=== PATIENT | female | born 1995 | race American Indian/Alaskan Native ===

== ENCOUNTER 2018-11-12 19:47 | Emergency (ER) | payer SELFPAY ==
[2018-11-12 20:37] VITALS: BP 103/62
[2018-11-12 21:09] LABS: Bilirubin,Urine NEG (Negative); Blood,Urine SM (Negative); Color,Urine Yellow (Yellow); Mucus,Urine FEW /HPF; Protein,Urine <15 mg/dL mg/dL (Negative); Urobilinogen,Urine < 2.0 mg/dL (<2.0)
== END 2018-11-12 23:00 | disposition left against medical advice (07) ==
LOC: ED 19:47
DX: O46.92 Antepartum hemorrhage, unspecified, second trimester (principal); Z3A.15 15 weeks gestation of pregnancy; Z53.21 Procedure and treatment not carried out due to patient leaving prior to being seen by health care provider
CPT/HCPCS: 81001

== ENCOUNTER 2019-04-23 10:22 | Outpatient (CLI) | payer MEDICAID ==
[2019-04-23 10:50] VITALS: BP 99/72
[2019-04-23] MEDS ORDERED: LACTATED RINGERS 1,000 ML IV ONE (11:04)
--- NOTE | 2019-04-23 11:43 | Event Note ---
Date: 04/23/19 (pt seen in Triage) pt confesses to taking castor oil X 2 doses "It's safe after 37 weeks." Explained to pt that causing ctx with dosing with castor oil can cause uterine rupture ( prev c/s) and that baby can have meconium stained amniotic fluid because it crosses the placenta. Pt declined her IVF and chose to increase PO fluids. She was informed by the RN that her preop was today @ 0945 and instructed to come straight over to the office. Pt d/c in no distress.
== END 2019-04-23 11:15 | disposition home or self-care (01) ==
LOC: TRG 10:22
PROVIDERS: ATTEND Obstetrics & Gynecology
DX: O47.1 False labor at or after 37 completed weeks of gestation (principal); Z3A.38 38 weeks gestation of pregnancy
CPT/HCPCS: 59025

== ENCOUNTER 2019-05-01 05:40 | Inpatient (IN) | payer MEDICAID ==
[2019-05-01] MEDS ORDERED: PEPCID IV ONE (06:11)
[2019-05-01] MEDS ORDERED: BICITRA PO ONE (06:11)
[2019-05-01] MEDS ORDERED: REGLAN IV ONE (06:11)
[2019-05-01 06:48] LABS: Basophils # (Auto) 0.1 K/mm3 (0.0-0.1); Basophils % (Auto) 0.9 % (0.0-1.8); Eosinophils # (Auto) 0.1 K/mm3 (0.0-0.4); Eosinophils % (Auto) 1.1 % (0.0-4.3); Hemoglobin 9.3 gm/dl (10.1-14.3); Lymphocytes # (Auto) 1.7 K/mm3 (1.2-5.4); Lymphocytes % (Auto) 26.6 % (13.4-35.0); Mean Corpuscular HGB Conc 33 % (30-34); Mean Corpuscular Volume 81 fl (79-97); Monocytes # (Auto) 0.4 K/mm3 (0.0-0.8); Monocytes % (Auto) 7.1 % (0.0-7.3); Platelet Count 179 K/mm3 (140-440); Red Blood Count 3.46 M/mm3 (3.65-5.03); Red Cell Distribution Width 14.3 % (13.2-15.2)
[2019-05-01] MEDS ORDERED: LACTATED RINGERS 1,000 ML IV SCH (07:00)
[2019-05-01] MEDS ORDERED: PITOCin/NS 20 UNIT/1000ML DRIP 20 UNITS/1,000 ML BAG IV SCH ×2 (07:00→12:00)
[2019-05-01] MEDS ORDERED: ANCEF/STERILE WATER 2 GM/20 ML 2 GM/20 ML SYRINGE IV NR (07:00)
--- NOTE | 2019-05-01 07:14 | History and Physical Report ---
History of Present Illness Date of examination: 04/29/19 Date of admission: 05/01/19 05:40 Chief complaint: Patient presents for repeat c/s. History of present illness: EDC Confirmation: 05/03/2019 Gestational Age: 28 4/7 weeks Past History : 3 Term Births: 2 Premature Births: 0 Living Children: 2 Para: 2 Mult. Births: 0 Prev : 2 Aborta: 0 Elect. Ab: 0 Spont. Ab: 0 Ectopics: 0 # 1 Delivery date: 2015 Weeks Gestation: 38 labor: no Delivery type: Sex: Female Comments: primary c/s for epilepsy # 2 Delivery date: 2017 Weeks Gestation: 38 labor: no Delivery type: Delivery location: [place] Infant Sex: Male Comments: scheduled repeat c/s Past Medical History: Epilepsy depression/anxiety bipolar Past Surgical History: 2015 and 2017 Past Medical History Surgery (Non-lapel stitcher): 2015 and 2017 Abnormal PAP: negative Family Hx: mother - aditiction no known family hx of cancer Social Hx: single relocated from [place] to help FOC's mother denies drugs/smoking/ETOH Infection History Hx of STD: GC/CT HIV Risk Eval: low risk Hepatitis B Risk Eval: low risk Personal hx. of genital herpes: no Partner hx. of genital herpes: no Rash, Viral, or Febrile illness since last LMP? no Varicella/Chicken Pox Status: Immunized Genetic History Congenital Heart Defect: Mom: no Dad: no Jesus Disease: Mom: no Dad: no Thalassemia Mom: no Dad: no Neural Tube Defect Mom: no Dad: no Down's Syndrome Mom: no Dad: no Taz-Sachs Mom: no Dad: no Sickle Cell Disease/Trait Mom: no Dad: no Hemophilia Mom: no Dad: no Muscular Dystrophy Mom: no Dad: no Cystic Fibrosis Mom: no Dad: no Kannan Chorea Mom: no Dad: no Mental Retardation Mom: no Dad: no Fragile X Mom: no Dad: no Other Genetic/Chromosomal Disorder Mom: no Dad: no Child w/other defect Mom: no Dad: no Enviromental Exposures Xray Exposure: no Medication, drug, or alcohol use since LMP: no Chemical/Other Exposure: no Exposure to Cat Liter: no Hx of Parvovirus (Fifth Disease): no Occupational Exposure to Children: none Current Allergies: No known allergies Past History - Obstetrical History : 3 Medications and Allergies Allergies Allergy/AdvReac Type Severity Reaction Status Date / Time No Known Allergies Allergy Verified 04/23/19 10:25 Home Medications Medication Instructions Recorded Confirmed Last Taken Type Vit-Fe Fumar-FA [ 1 tab PO QDAY 04/23/19 05/01/19 04/22/19 21:00 History Vitamin] 1 Active Meds: Active Medications Cefazolin Sodium (Ancef/Sterile Water 2 Gm/20 Ml) 2 gm in 20 mls @ 80 mls/hr IV PREOP NR; Protocol Stop: 05/01/19 07:14 Last Admin: 05/01/19 06:54 Dose: 80 mls/hr Documented by: Oxytocin/Sodium Chloride (Pitocin/Ns 20 Unit/1000ml Drip) 20 units in 1,000 mls @ 0 mls/hr IV TITR MARA Lactated Ringer's (Lactated Ringers) 1,000 mls @ 2,250 mls/hr IV PREOP MARA Stop: 05/02/19 07:27 Last Admin: 05/01/19 06:55 Dose: 2,250 mls/hr Documented by: - Vital Signs Vital signs: Vital Signs Pulse BP 76 112/65 05/01/19 06:51 05/01/19 06:51 Temp Pulse Resp BP Pulse Ox 76 112/65 05/01/19 06:51 05/01/19 06:51 - Physical Exam Breasts: Positive: deferred Cardiovascular: Regular rate Lungs: Positive: Clear to auscultation, Normal air movement Abdomen: Positive: soft Uterus: Positive: enlarged. Negative: tender - Obstetrical FHR: category 1 Results Result Diagrams: 05/01/19 06:25 Abnormal lab results 05/01/19 Range/Units 06:25 RBC 3.46 L (3.65-5.03) M/mm3 Hgb 9.3 L (10.1-14.3) gm/dl Hct 28.0 L (30.3-42.9) % MCH 27 L (28-32) pg All other labs normal. Assessment and Plan - Patient Problems (1) 39 weeks gestation of Current Visit: Yes Status: Acute (2) Maternal care due to low transverse uterine scar from previous deli very Current Visit: Yes Status: Acute Plan to address problem: Options reviewed, questions enocuaregad and answered. She was informed of the increased risks for complications involving bowel. bladder, ureters and vascular that could be fatal. She declines sterilization and desires to proceed with C/S.
--- NOTE | 2019-05-01 07:20 | Anesthesia Day of Surgery ---
Anesthesia Day of Surgery - Day of Surgery Patient Examined: Yes Patient H&P Reviewed: Yes Patient is NPO: Yes
--- NOTE | 2019-05-01 07:20 | Anesthesia Consultation ---
Anesthesia Consult and Med Hx Date of service: 05/01/19 - Airway Anesthetic Teeth Evaluation: Good ROM Head & Neck: Adequate Mental/Hyoid Distance: Adequate Mallampati Class: Class II Intubation Access Assessment: Good - Pulmonary Exam CTA: Yes - Cardiac Exam Cardiac Exam: RRR - Pre-Operative Health Status ASA Pre-Surgery Classification: ASA2 Proposed Anesthetic Plan: Spinal - Pulmonary Hx Asthma: No - Cardiovascular System Hx Hypertension: No - Central Nervous System Hx Seizures: Yes (epilepsy) Hx Psychiatric Problems: Yes (Bipolar Disorder, Anxiety, depression) - Endocrine Hx Renal Disease: No Hx Hypothyroidism: No Hx Hyperthyroidism: No - Hematic Hx Anemia: No Hx Sickle Cell Disease: No - Other Systems Hx Alcohol Use: No
[2019-05-01] MEDS ORDERED: SUBLIMAZE ONE (07:28)
[2019-05-01] MEDS ORDERED: ZOFRAN ONE (07:28)
[2019-05-01] MEDS ORDERED: NACL 0.9% IR ONE (08:11)
[2019-05-01] MEDS ORDERED: WATER FOR IRRIG STERILE IR ONE (08:11)
[2019-05-01] MEDS ORDERED: TORADOL ONE (08:35)
[2019-05-01] MEDS ORDERED: BENADRYL ONE (08:35)
[2019-05-01] MEDS ORDERED: NARCAN 0.4 MG/1 ML IV PRN ×2 (09:00→12:00)
[2019-05-01] MEDS ORDERED: ZOFRAN IV PRN (09:00)
[2019-05-01] MEDS ORDERED: DILAUDID IV PRN ×2 (09:00)
[2019-05-01] MEDS ORDERED: PHENERGAN PR PRN (09:00)
[2019-05-01] MEDS ORDERED: SODIUM CHLORIDE FLUSH SYRINGE 10 ML IV PRN ×2 (09:00→12:00)
[2019-05-01] MEDS ORDERED: MORPHINE IV PRN ×3 (09:00→12:00)
[2019-05-01] MEDS ORDERED: PHENERGAN PO PRN (09:00)
[2019-05-01] MEDS ORDERED: DILAUDID ONE (09:01)
--- NOTE | 2019-05-01 09:22 | Operative Report ---
Operative Report Operative Report: Date: 03/03/2019 Preoperative diagnosis: 1. Intrauterine at 39 week 2. Previous delivery 2 desires repeat Postoperative diagnosis: 1. Intrauterine at 39 week 2. Previous delivery 2 desires repeat Procedure: Low uterine transverse incision for delivery Surgeon: Samina Dhillon MD Bail Bond Agent: Cori Philippe Anesthesia: Epidural Anesthesiologist: Estimated blood loss: 500 mL Urine out: 100 mL Findings: Live born female . Weight 6 lbs. 11 oz. Apgars 7 at 1 minute and 9 at 5 minutes. Uterus grossly normal, tubes grossly normal , ovaries grossly normal. Procedure: After risk, benefits, complications, consequences and alternatives for this procedure were discussed with patient and consents were reviewed and signed, she was taken to the OR where epidural anesthesia was placed. She was then placed in the left lateral tilt position, and prepped and draped in the usual sterile fashion. Timeout was performed, and an appropriate level of anesthesia was noted, a Pfannenstiel incision was made and extended to the fascia which was incised and extended in the lateral directions. The overlying fascia was sharply dissected away from the underlying rectus muscles in the superior and inferior directions. The midline was entered bluntly. The vesicouterine fold was incised and with blunt dissection the bladder flap was created. A transverse incision was made in the lower uterine segment and extended in superiolateral direction with finger fractionation. Clear fluid was noted. The infant was delivered from cephalic position. Mouth and nose were bulb suctioned. Spontaneous cry and excellent tone were noted. Cord was doubly clamped and cut. The was given to /resuscitation team present. The placenta was manually extracted. The uterus was then exteriorized and cleared of any further products of conception or placental tissue. The incision was reapproximated using 0 Vicryl in a running interlocking stitch. Grossly normal uterus, tubes and ovaries were noted. Once hemostasis was noted, the uterus was allowed back into the pelvic cavity. The pelvis was irrigated with warm normal saline. Again hemostasis was noted . Tisseel applied for further hemostasis. Interceed was then placed to prevent adhesions. Then attention was turned to the rectus muscles. The rectus muscles reapproximated using 0 Vicryl in a simple interrupted stitch x 2. Once hemostasis was noted, the fascia was reapproximated using 0 Vicryl running stitch fashion. Once hemostasis was noted skin incision was reapproximated using 4-0 Vicryl on a Miguel Ángel needle in a subcuticular manner. Counts were correct 3. Patient tolerated procedure well state recovery room in stable condition.
--- NOTE | 2019-05-01 10:06 | Post Anesthesia Evaluation ---
- Post Anesthesia Evaluation Patient Participated: Yes Airway Patent: Yes Stable Respiratory Function: Yes Nausea/Vomiting: No Temp > 96.8F: Yes Pain Manageable: Yes Adequeate Hydration: Yes Anesthesia Complications: No Block Receding Appropriately: Yes Patient on Ventilator: No
[2019-05-01] MEDS ORDERED: D5LR 1,000 ML IV SCH (12:00)
[2019-05-01] MEDS ORDERED: TYLENOL PO PRN (12:00)
[2019-05-01] MEDS ORDERED: MYLICON PO PRN (12:00)
[2019-05-01] MEDS ORDERED: TUCKS PAD TP PRN (12:00)
[2019-05-01] MEDS ORDERED: LANSINOH TP PRN (12:00)
[2019-05-01] MEDS: TORADOL IV PRN ×2 (14:59→21:22)
[2019-05-01] MEDS: ANCEF/NS 1 GM/50 ML 1 GM/50 ML BAG IV SCH (16:00)
--- NOTE | 2019-05-01 19:15 | Consultation ---
Medications and Allergies Allergies Allergy/AdvReac Type Severity Reaction Status Date / Time No Known Allergies Allergy Verified 04/23/19 10:25 Home Medications Medication Instructions Recorded Confirmed Last Taken Type Vit-Fe Fumar-FA [ 1 tab PO QDAY 04/23/19 05/01/19 04/22/19 21 :00 History Vitamin] 1 Docusate Sodium [Colace] 100 mg PO BID PRN #30 capsule 05/01/19 Unknown Rx Ferrous Sulfate [Feosol 325 MG tab] 325 mg PO BID #90 tablet 05/01/19 Unknown Rx Ibuprofen [Motrin 800 MG tab] 800 mg PO TID PRN #30 tablet 05/01/19 Unknown Rx oxyCODONE /ACETAMINOPHEN [Percocet 1 - 2 tab PO Q4HR PRN #20 tablet 05/01/19 Unknown Rx 5/325 mg] Active Meds: Active Medications Acetaminophen (Tylenol) 650 mg PO Q6H PRN PRN Reason: Fever >100.5/HINOJOSA Diphtheria/Tetanus/Acell Pertussis (Boostrix) 0.5 ml IM .ONCE ONE Stop: 05/02/19 06:01 Ferrous Sulfate (Feosol) 325 mg PO QDAY [facility] Oxytocin/Sodium Chloride (Pitocin/Ns 20 Unit/1000ml Drip) 20 units in 1,000 mls @ 250 mls/hr IV DIRECT MARA Dextrose/Lactated Ringer's (D5lr) 1,000 mls @ 125 mls/hr IV DIRECT MARA Cefazolin Sodium (Ancef/Ns 1 Gm/50 Ml) 1 gm in 50 mls @ 100 mls/hr IV Q8H [facility] Stop: 05/01/19 23:59 Ibuprofen (Ibuprofen) 800 mg PO Q6H PRN PRN Reason: Pain, Mild (1-3) Ketorolac Tromethamine (Toradol) 30 mg IV Q6H PRN PRN Reason: Pain, Moderate (4-6) Stop: 05/06/19 11:59 Last Admin: 05/01/19 14:59 Dose: 30 mg Documented by: Magnesium Hydroxide (Milk Of Magnesia) 30 ml PO QHS PRN PRN Reason: Constip Unrelieved By Senna Morphine Sulfate (Morphine) 2 mg IV Q4H PRN PRN Reason: Pain, Moderate (4-6) Morphine Sulfate (Morphine) 4 mg IV Q4H PRN PRN Reason: Pain , Severe (7-10) Multi-Ingredient Ointment (Lansinoh) 1 applic TP PRN PRN PRN Reason: dryness/cracking Naloxone HCl (Narcan 0.4 Mg/1 Ml) 0.1 mg IV Q2MIN PRN PRN Reason: Res Rate </= 8 or 02 SAT < 92% Oxycodone/Acetaminophen (Percocet 5/325) 2 tab PO Q6H PRN PRN Reason: Pain, Moderate (4-6) Simethicone (Mylicon) 80 mg PO Q6H PRN PRN Reason: Gas pain Sodium Chloride (Sodium Chloride Flush Syringe 10 Ml) 10 ml IV PRN PRN PRN Reason: flush Witch Jane/Glycerin (Tucks Pad) 1 each TP PRN PRN PRN Reason: Hemorrhoids/cleansing/soothing Physical Examination - Vital Signs Vital Signs: Vital Signs Pulse BP 76 112/65 05/01/19 06:51 05/01/19 06:51 Results - Laboratory Findings CBC and BMP: 05/01/19 06:25 Abnormal Lab Findings: Abnormal Labs 05/01/19 06:25 RBC 3.46 L Hgb 9.3 L Hct 28.0 L MCH 27 L Assessment and Plan Ms. Hernandez is a 24-year-old female who delivered her baby by section today. Neurology was consulted because patient is a history of seizures which had been controlled with lamotrigine 150 mg twice a day. Patient stopped taking lamotrigine in last August when she came to know that she was . She recalls her last seizure in September 2018. During her although she did not take any seizure medication she did not have any recurrence of seizure. Patient states that she has epilepsy which was diagnosed bleed on CT scan and EEG). She tried different medications and finally it was found that lamotrigine 150 mg twice a day worked best for her. Patient also has history of migraine headache. However she denies any episode of migraine recently and also no episode of seizures. Physical examination. Patient is alert and appropriate has insight into her problems and answers questions appropriately. Heart. Normal rate and rhythm. Carotids. No palpable no bruit. Cranial nerves. All cranial nerves are within normal limits. Motor. No asymmetry of strength between extremities Coordination. Finger to nose is within normal limits Reflexes: There is no asymmetry of reflexes and all reflexes in both upper and lower extremities are within normal limits Sensory. Sensory examination was grossly within normal limits. Impression. #1. 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 Recommendation. #1. Lamotrigine is fairly safe to take while mother is breast-feeding, occasional side effect has been seen in babies whose mothers had been taking lamotrigine and the side effects include rash. Patient was counseled about the benefit of breast-feeding versus not breast feeding. Patient verbalized understanding. Patient reported that she is not interested to breast feed the child and she has another child 16 month old who is also not breast fed. Patient at present does not have any neurologist and the nurse was instructed to find a neurologist near by and to give her the number so that she could establish a follow up care. #2. No need to start her on lamotrigine while she is in the hospital unless there is a seizure activity
[2019-05-01] MEDS ORDERED: MILK OF MAGNESIA PO PRN (22:00)
[2019-05-02] MEDS: ANCEF/NS 1 GM/50 ML 1 GM/50 ML BAG IV SCH (00:34)
[2019-05-02] MEDS: PERCOCET 5/325 PO PRN ×4 (01:18→23:35)
[2019-05-02] MEDS: IBUPROFEN PO PRN ×2 (05:30→23:36)
[2019-05-02] MEDS ORDERED: BOOSTRIX IM ONE (06:00)
[2019-05-02] MEDS: FEOSOL PO SCH (08:08)
[2019-05-02 09:39] LABS: Hematocrit 21.7 % (30.3-42.9); Hemoglobin 7.3 gm/dl (10.1-14.3)
--- NOTE | 2019-05-02 11:03 | Consultation ---
History of Present Illness - Reason for Consult Consult date: 05/02/19 Reason for consult: Mental Health Evaluation Requesting physician: LEONOR JOHNSON - Chief Complaint Chief complaint: "I'm okay" - History of Present Psychiatric Illness 24 y.o. female who delivered her baby by yesterday. Psychiatry was consulted to see the patient for medication mgmt and depression. Today the patient was calm and cooperative during the assessment. She stated that she has a hx of depression/ depression. She stated that she took medication last year for depression. She acknowledged a suicide attempt as a teen by overdosing. She denies ever going to a mental health facility when asked. She stated that she look forward to being a new mom for the third time. During the interview, the patient was holding her close to her. she stated that she's interested in therapy sessions along with medication treatment, but want to think about it more. She denies SI/HI's and AVH's. She denies erratic sleep and a poor appetite. She denies recreational drug use and alcohol consumption (etoh). Medications and Allergies Allergies Allergy/AdvReac Type Severity Reaction Status Date / Time No Known Allergies Allergy Verified 04/23/19 10:25 Home Medications Medication Instructions Recorded Confirmed Last Taken Type Vit-Fe Fumar-FA [ 1 tab PO QDAY 04/23/19 05/01/19 04/22/19 21:00 History Vitamin] 1 Docusate Sodium [Colace] 100 mg PO BID PRN #30 capsule 05/01/19 Unknown Rx Ferrous Sulfate [Feosol 325 MG tab] 325 mg PO BID #90 tablet 05/01/19 Unknown Rx Ibuprofen [Motrin 800 MG tab] 800 mg PO TID PRN #30 tablet 05/01/19 Unknown Rx oxyCODONE /ACETAMINOPHEN [Percocet 1 - 2 tab PO Q4HR PRN #20 tablet 05/01/19 Unknown Rx 5/325 mg] Active Meds: Active Medications Acetaminophen (Tylenol) 650 mg PO Q6H PRN PRN Reason: Fever >100.5/HINOJOSA Ferrous Sulfate (Feosol) 325 mg PO QDAY MARA Last Admin: 05/02/19 08:08 Dose: 325 mg Documented by: Oxytocin/Sodium Chloride (Pitocin/Ns 20 Unit/1000ml Drip) 20 units in 1,000 mls @ 250 mls/hr IV DIRECT MARA Dextrose/Lactated Ringer's (D5lr) 1,000 mls @ 125 mls/hr IV DIRECT MARA Last Admin: 05/01/19 21:22 Dose: 125 mls/hr Documented by: Ibuprofen (Ibuprofen) 800 mg PO Q6H PRN PRN Reason: Pain, Mild (1-3) Last Admin: 05/02/19 05:30 Dose: 800 mg Documented by: Ketorolac Tromethamine (Toradol) 30 mg IV Q6H PRN PRN Reason: Pain, Moderate (4-6) Stop: 05/06/19 11:59 Last Admin: 05/01/19 21:22 Dose: 30 mg Documented by: Magnesium Hydroxide (Milk Of Magnesia) 30 ml PO QHS PRN PRN Reason: Constip Unrelieved By Senna Morphine Sulfate (Morphine) 2 mg IV Q4H PRN PRN Reason: Pain, Moderate (4-6) Morphine Sulfate (Morphine) 4 mg IV Q4H PRN PRN Reason: Pain , Severe (7-10) Multi-Ingredient Ointment (Lansinoh) 1 applic TP PRN PRN PRN Reason: dryness/cracking Naloxone HCl (Narcan 0.4 Mg/1 Ml) 0.1 mg IV Q2MIN PRN PRN Reason: Res Rate </= 8 or 02 SAT < 92% Oxycodone/Acetaminophen (Percocet 5/325) 2 tab PO Q6H PRN PRN Reason: Pain, Moderate (4-6) Last Admin: 05/02/19 08:07 Dose: 2 tab Documented by: Simethicone (Mylicon) 80 mg PO Q6H PRN PRN Reason: Gas pain Last Admin: 05/02/19 05:41 Dose: 80 mg Documented by: Sodium Chloride (Sodium Chloride Flush Syringe 10 Ml) 10 ml IV PRN PRN PRN Reason: flush Witch Jane/Glycerin (Tucks Pad) 1 each TP PRN PRN PRN Reason: Hemorrhoids/cleansing/soothing Past psychiatric history - Past Medical History Past Medical History: other ( x 3) Past Surgical History: - past Psychiatric treatment and history psychiatric treatment history: Hx of post Mental Status Exam - Vital signs Last Vital Signs Temp 97.5 F L 05/02/19 07:16 Pulse 78 05/02/19 07:16 Resp 18 05/02/19 07:16 BP 107/75 05/02/19 07:16 Pulse Ox 99 05/02/19 04:21 - Exam Narrative exam: MSE: Appearance: calm, cooperative Behavior: regular eye contact Speech: regular rate and tone Mood: "okay" Affect: congruent to mood Thought Process: linear Thought Content: denies SI/HI's and AVH's Motor Activity: ambulatory Cognition: A/O x 3 Insight: appropriate Judgment: appropriate Results Result Diagrams: 05/02/19 09:26 Abnormal lab results 05/02/19 Range/Units 09:26 Hgb 7.3 L (10.1-14.3) gm/dl Hct 21.7 L D (30.3-42.9) % All other labs normal. Assessment and Plan Assessment and plan: Impression: Hx of Depression/ Depression per the patient. Today the patient was calm and cooperative during the assessment. . Recommendation/Plan: Risk/Benefits of SSRI's was discussed with the patient, she verbalized understanding. She would like 24 hours to determine if she want to be placed on medication (antidepressants). Dispo: The patient will be given a referral to [facility] for outpatient psy services prior to her discharged. Will staff with Dr. Kera Alva.
--- NOTE | 2019-05-02 12:03 | Progress Note ---
Assessment and Plan - Patient Problems (1) S/P repeat low transverse Current Visit: Yes Status: Acute Plan to address problem: -routine post op/pp care -doing well -d/c home in am if cleared by psych (2) Seizure disorder Current Visit: Yes Status: Acute Plan to address problem: -stable and seen by neuro with thanks -no meds are recommended at this time (3) History of depression Current Visit: Yes Status: Acute Plan to address problem: -pt did not have any c/o depression at the time of my visit. She has been seen by psych with thanks and is considering meds at this time -will await final recommendations and clearance prior to d/c to home. Subjective - Subjective Date of service: 05/02/19 Principal diagnosis: POD #1 s/p RLTCS; h/o sz d/o; h/o pp depression Interval history: Pt has no c/o today. She reports ambulating in the room and caba and +flattus with toleration of regular diet.Pain is well controlled. Patient reports: appetite normal, voiding normally, pain well controlled, flatus, ambulating normally, no dizzy ambulation, no nauseated : doing well Objective - Vital Signs Latest vital signs: Vital Signs Temp Pulse Resp BP BP Pulse Ox 05/02/19 07:16 97.5 F L 78 18 107/75 05/02/19 04:21 97.8 F 75 16 92/56 99 05/02/19 00:10 98.6 F 71 16 97/61 98 05/01/19 19:13 98.2 F 68 18 100/61 98 05/01/19 16:52 97.8 F 66 18 105/69 98 Intake and Output 05/01/19 05/02/19 05/02/19 22:59 06:59 14:59 Intake Total 50 480 Output Total 700 800 500 Balance -650 -800 -20 Intake: IV 50 ANCEF/NS 1 GM/50 ML 1 gm 50 In 50 ml @ 100 mls/hr IV Q8H [facility] Rx#:[id number] Oral 480 Output: Urine 700 800 500 Indwelling Catheter 700 Void 800 500 Other: Total, Intake Amount 480 Total, Output Amount 700 200 500 # Voids Void 1 - Exam Breasts: Present: normal Cardiovascular: Present: Normal S1, Normal S2 Lungs: Present: Clear to auscultation, Normal air movement Abdomen: Present: normal appearance, soft, normal bowel sounds. Absent: distention, tenderness, guarding Uterus: Present: normal, firm. Absent: bogginess, tenderness Extremities: Present: normal. Absent: tenderness, edema Deep Tendon Reflex Grade: Normal +2 Incision: Present: normal, dry, intact (open to air) - Labs Labs: Abnormal lab results 05/02/19 Range/Units 09:26 Hgb 7.3 L (10.1-14.3) gm/dl Hct 21.7 L D (30.3-42.9) %
[2019-05-03] MEDS: IBUPROFEN PO PRN (09:11)
[2019-05-03] MEDS: PERCOCET 5/325 PO PRN (09:11)
[2019-05-03] MEDS: FEOSOL PO SCH (09:11)
--- NOTE | 2019-05-03 12:57 | Progress Note ---
Assessment and Plan - Patient Problems (1) S/P repeat low transverse Current Visit: Yes Status: Acute Plan to address problem: -routine post op/pp care -doing well -d/c home today when cleared by psych (2) Seizure disorder Current Visit: Yes Status: Acute Plan to address problem: -stable and seen by neuro with thanks -no meds are recommended at this time (3) History of depression Current Visit: Yes Status: Acute Plan to address problem: -pt did not have any c/o depression at the time of my visit. She has been seen by psych with thanks and is considering meds at this time -will await final recommendations and clearance prior to d/c to home. Subjective - Subjective Date of service: 05/03/19 Principal diagnosis: POD #2 s/p RLTCS; h/o sz d/o; h/o pp depression Interval history: Pt was seen by providers and stated at that time she was undecided about meds for pp depression history. She now states that she does want to start medications. She is breast feeding. Will await recommendations for psych. 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 Patient reports: voiding normally, pain well controlled [place]: doing well, nursing well Objective - Vital Signs Latest vital signs: Vital Signs Temp Pulse Resp BP BP Pulse Ox 05/03/19 08:12 97.9 F 64 16 94/61 97 05/03/19 01:00 98.1 F 78 18 99/64 98 05/02/19 23:36 18 05/02/19 23:35 18 05/02/19 17:37 98.1 F 81 18 118/63 Intake and Output 05/02/19 05/03/19 05/03/19 22:59 06:59 14:59 Intake Total 480 480 Balance 480 480 Intake: Oral 480 120 Intake, Free Water 360 Other: Total, Intake Amount 480 120 # Voids Void 1 1 - Exam Cardiovascular: Present: Normal S1, Normal S2 Lungs: Present: Clear to auscultation, Normal air movement Abdomen: Present: normal appearance, soft. Absent: distention, tenderness, guarding Extremities: Present: normal. Absent: tenderness, edema Deep Tendon Reflex Grade: Normal +2 Incision: Present: normal, dry, intact
--- NOTE | 2019-05-03 13:03 | Discharge Summary ---
Providers - Providers Date of Admission: 05/01/19 05:40 Date of discharge: 05/03/19 Attending physician: SHANNON GONZALEZ 05/01/19 11:40 Consult to Case Management [CONS] Routine Services Needed at Discharge: Kiln Tester Notified:: yes Phone number called:: [phone] Time called:: 13:49 Additional Physician Instructions: Especially transportation and living arrangements, manager psychiatry Consult to Transfer Table Operator [CONS] Routine Reason For Exam: 05/01/19 14:42 Consult to Mental Health [CONS] Routine Reason For Exam: h/o depression Place consult to:: mental health Notified:: yes Phone number called:: [phone] Was contact made?: Yes If yes, spoke with:: vita Time called:: 15:17 Comment:: told about consult per dr. johnson Consult to Physician [CONS] Routine Comment: Consulting Provider: BLADE FERNANDES Physician Instructions: Reason For Exam: h/o seizure, medication management Primary care physician: SHANNON GONZALEZ Hospitalization Reason for admission: section Delivery: Procedure: section Procedure details: see op note Incision: normal, dry, intact Other procedures: none complications: none Hospital course: Pt admitted for scheduled repeat c/s . She has not had a complicated pp /post op course. She was seen by neuor due to h/o sz d/o w/o meds during the as well as psych for h/o pp depression with previous delivery.Pt will be d/c home once she is cleared by d/c with psych Condition at discharge: Good Disposition: DC-01 TO HOME OR SELFCARE - Discharge Diagnoses (1) S/P repeat low transverse Status: Acute (2) Seizure disorder Status: Acute (3) History of depression Status: Acute Plan - Discharge Medications Prescriptions: Docusate Sodium [Colace] 100 mg PO BID PRN #30 capsule PRN Reason: Constip Unreliev By Mom/Or Npo Ferrous Sulfate [Feosol 325 MG tab] 325 mg PO BID #90 tablet Ibuprofen [Motrin 800 MG tab] 800 mg PO TID PRN #30 tablet PRN Reason: Pain oxyCODONE /ACETAMINOPHEN [Percocet 5/325 mg] 1 - 2 tab PO Q4HR PRN #20 tablet PRN Reason: Pain - Provider Discharge Summary Additional instructions: [] Smoking cessation referral if applicable(refer to patient education folder for contact #) [] Refer to [facility]'s [facility] Booklet Call your doctor immediately for: * Fever > 100.5 * Heavy vaginal bleeding ( >1 pad per hour) * Severe persistent headache * Shortness of breath * Reddened, hot, painful area to leg or breast * Drainage or odor from incision. * Keep incision clean and dry at all times and follow doctor's instructions regarding bathing/showering - Follow up plan Follow up: [facility] [Outside] - 3 Days (Saturday - Saturday 8:00am - 5:00pm. Walk-In only Must arrive at 7:45 as available slots are first come, first served. To be eligible for services, you must bring the following with you: 1. Proof of Identity 2. Proof of Residence 3. Proof of Income 4. Insurance Cards 5. Referral documents and/or hospital discharge papers.) SAEED DAWKINS MD [Staff Physician] - 3 Days LEONOR JOHNSON MD [Staff Physician] - 7 Days Forms: [facility] Discharge Summary
--- NOTE | 2019-05-03 14:07 | Progress Note ---
Subjective - Reason for Consult Consult date: 05/03/19 Reason for consult: Psychiatry Follow-up - Chief Complaint Chief complaint: "i;m doing good today" 24 y.o. female who delivered her baby by yesterday. Psychiatry was consulted to see the patient for medication mgmt and depression. Today the patient was calm and cooperative during the assessment. She stated that she would like to be started on a antidepressant after being educated on the risk/benefits of the medication yesterday. She denies SI/HI's and AVH's. She was observed engaging with her throughout the interview. . Mental Status Exam - Vital signs Last Vital Signs Temp 97.9 F 05/03/19 08:12 Pulse 64 05/03/19 08:12 Resp 16 05/03/19 08:12 BP 94/61 05/03/19 08:12 Pulse Ox 97 05/03/19 08:12 - Exam Narrative exam: MSE: Appearance: calm, cooperative Behavior: regular eye contact Speech: regular rate and tone Mood: "okay" Affect: congruent to mood Thought Process: linear Thought Content: denies SI/HI's and AVH's Motor Activity: ambulatory Cognition: A/O x 3 Insight: appropriate Judgment: appropriate Assessment and Plan Impression: Hx of Depression/ Depression per the patient. Today the patient was calm and cooperative during the assessment. . Recommendation/Plan: Start Zoloft 25 mg Po daily for depression. Discussed possible suicdality/medication induced byron with the patient reference Zoloft, she verbalized understanding. The patient do not plan to breastfeed. Dispo: The patient can follow up with [facility] for outpatient psy services. Will staff with Dr. Kera Alva.
[2019-05-03] MEDS ORDERED: ZOLOFT PO SCH (15:00)
[2019-05-03 15:12] VITALS: BP 115/76
== END 2019-05-03 15:00 | disposition home or self-care (01) | DRG 765 ==
LOC: APU 05:40 → OB 11:38
PROVIDERS: ADMIT Obstetrics & Gynecology; ATTEND Obstetrics & Gynecology
PROC: 10D00Z1 Extraction of Products of Conception, Low, Open Approach (ICD-10-PCS; principal; 2019-05-01)
DX: O34.211 Maternal care for low transverse scar from previous cesarean delivery (principal); O99.354 Diseases of the nervous system complicating childbirth; O99.344 Other mental disorders complicating childbirth; F32.9 Major depressive disorder, single episode, unspecified; F41.9 Anxiety disorder, unspecified; G40.909 Epilepsy, unspecified, not intractable, without status epilepticus; Z79.899 Other long term (current) drug therapy; Z3A.39 39 weeks gestation of pregnancy; Z37.0 Single live birth
CPT/HCPCS: 36415; 85014; 85018; 85025; 86850; 86900; 86901; 90715; G0378; C1765; C9250; J0690; J1170; J1200; J1885; J2405; J2590; J2765; J3010; J7120; J7121